=== PATIENT | male | born 1995 | race African-American/Black ===

== ENCOUNTER 2018-02-09 20:03 | Emergency (ER) | payer SELFPAY ==
--- NOTE | 2018-02-09 21:13 | EDPHY ---
H & P Stated Complaint: SWOLLEN R ANKLE/FROM ANKLE MONITOR WANTS IT LOOSENED Time Seen by Provider: 02/09/18 21:13 - Personal History Current Tetanus Diphtheria and Acellular Pertussis (TDAP): Yes - Medical/Surgical History Hx Asthma: No Hx Chronic Respiratory Disease: No Hx Diabetes: No Hx Cardiac Disease: No Hx Renal Disease: No Hx Cirrhosis: No Hx Alcoholism: No Hx HIV/AIDS: No Hx Splenectomy or Spleen Trauma: No Other PMH: DENIES - Social History Smoking Status: Light smoker Constitutional: Initial Vital Signs Temperature (C) 37.7 C 02/09/18 20:22 Heart Rate 95 02/09/18 20:22 Respiratory Rate 16 02/09/18 20:22 Blood Pressure 136/67 H 02/09/18 20:22 O2 Sat (%) 98 02/09/18 20:22 O2 Delivery Mode Room Air Allergies/Adverse Reactions: No Known Allergies Allergy (Unverified 02/09/18 20:24) Home Medications: Medication Instructions Recorded Sulfamethox/Tmp 800/160 mg 1 tab PO BID #14 tab 02/09/18 [Bactrim Ds] Medical Decision Making ED Course/Re-evaluation: CHIEF COMPLAINT: Right ankle pain and swelling HISTORY OF PRESENT ILLNESS: The patient is a 22 y/o male complaining of right ankle pain and swelling at the site of his ankle monitor. He is unable to remove the ankle monitor and is concerned about an infection. 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 No fever, headache, chest pain, shortness of breath, abdominal pain , urinary or bowel complaints, numbness, paresthesias, fevers. REVIEW OF SYSTEMS: A comprehensive 10 system review of systems is otherwise negative aside from elements mentioned in the history of present illness and medical decision making. PHYSICAL EXAM: HR, BP, O2 Sat, RR. Temp noted General Appearance: Alert, well hydrated, appropriate, and non-toxic appearing. Head: Atraumatic without scalp tenderness or obvious injury Eyes: Pupils equal, round, reactive to light and accommodation, EOMI, no trauma , no injection. Ears: Clear bilaterally, no perforation, normal landmarks Nose: Atraumatic, no rhinorrhea, clear. Throat: There is no erythema or exudates, no lesions, normal tonsils, mucus membranes moist. Musculoskeletal: Normal active ROM of all extremities, atraumatic. Neurological: Alert, appropriate, and interactive. The patient has normal DTRs and non-focal cranial nerves, motor, sensory, and cerebellar exam. Skin: Erythema under the right ankle bracelet. Several small subcutaneous areas of swelling that are not ready to drain. No rashes, good turgor, no nodules on palpation. Past medical history: Denies Past surgical history: Denies Family history: Denies Social history: Lives in [place], single, employed DIAGNOSTICS/PROCEDURES/CRITICAL CARE TIME: Not indicated. DIFFERENTIAL DIAGNOSIS: The differential diagnosis for the patient's skin redness included but was not limited to cellulitis, viral syndrome, meningitis, and sepsis. MEDICAL DECISION MAKING: The patient is a 22 y/o male complaining of right ankle pain and swelling at the site of his ankle monitor. On exam there is erythema under the ankle bracelet. There are also several small subcutaneous areas of swelling that are not ready to drain. He is trying to contact his truant officer to remove the ankle bracelet. 800mg PO Bactrim and 600mg PO Motrin given for patient's right ankle cellulitis and pain. 2215: Patient has been unable to contact his truant officer to remove the ankle bracelet. We will contact [employer] to remove the ankle bracelet. We contacted the [place] please. They told us to cut the ankle bracelet off in the patient can get a new bracelet tomorrow. It is medically indicated due to his underlying cellulitis. - Data Points Medications Given: Discontinued Medications Ibuprofen (Motrin) 600 mg PO EDNOW ONE Stop: 02/09/18 22:02 Last Admin: 02/09/18 22:13 Dose: 600 mg Trimethoprim/Sulfamethoxazole (Bactrim Ds) 1 ea PO EDNOW ONE PRN Reason: Protocol Stop: 02/09/18 21:17 Last Admin: 02/09/18 22:13 Dose: 1 ea Departure - Departure Disposition: Home, Routine, Self-Care Clinical Impression: Cellulitis Qualifiers: Site of cellulitis: extremity Site of cellulitis of extremity: lower extremity Laterality: right Qualified Code(s): L03.115 - Cellulitis of right lower limb Condition: Good Instructions: Cellulitis (ED) Additional Instructions: 1. Take Bactrim as prescribed. 2. Follow-up with your primary doctor within 72 hours. 3. Return to the Emergency Department for fever, chest pain, shortness of breath , increasing pain or other worsening of condition. 4. It was required to cut the ankle bracelet off due to underlying cellulitis. We had no other solution. We started the patient on antibiotics. Referrals: [facility],. [Clinic] - As per Instructions Prescriptions: Sulfamethox/Tmp 800/160 mg [Bactrim Ds] 1 tab PO BID #14 tab Report Scribed for: Miguel Monsalve Report Scribed by: Rae Byrnes Date of Report: 02/09/18 Time of Report: 21:14
[2018-02-09] MEDS ORDERED: SULFAMETHOX/TMP 800/160 MG 1 TAB PO ONE (21:16)
[2018-02-09] MEDS ORDERED: IBUPROFEN 600 MG TAB PO ONE ×2 (22:00→22:01)
[2018-02-09] MEDS ORDERED: CEPHALEXIN 500 MG CAP PO ONE (22:27)
[2018-02-09 22:40] VITALS: BP 144/80
== END 2018-02-09 22:44 | disposition home or self-care (01) ==
LOC: EEVIPCON 20:03
DX: L03.115 Cellulitis of right lower limb (principal); F17.200 Nicotine dependence, unspecified, uncomplicated

== ENCOUNTER 2018-03-09 17:45 | Emergency (ER) | payer SELFPAY ==
[2018-03-09 18:00] VITALS: BP 125/77
--- NOTE | 2018-03-09 18:31 | EDPHY ---
H & P Time Seen by Provider: 03/09/18 18:16 HPI/ROS: HPI Recheck of right leg wound. Sore throat. 22-year-old male on foot. This patient was seen in the emergency department by Dr. Miguel Monsalve on February 09 with complaint of possible infection to his right ankle secondary to his ankle monitoring bracelet. He was placed on Bactrim DS for 7 days. He has taken these antibiotics. He states that the area of his right ankle has been itching him but otherwise has no complaints. He also complains of an ongoing sore throat for 2-3 months since he ate some pizza down in [place] which he thought may have had some glass shards in it. ROS: Constitutional: No fever, no chills. No weakness. Eyes: No discharge. No changes in vision. ENT: As above. No nasal congestion or rhinorrhea. Respiratory: No cough. No shortness of breath. Musculoskeletal: No back pain. No neck pain. No myalgias or arthralgias. Skin: No rashes. As above. Neurological: No headache. No focal weakness or altered sensation. Past medical history: Denies any other past medical history. Social history: Nonsmoker. No alcohol. Currently here by himself. Physical Exam: General Appearance: Alert, no distress. This patient is responding to questions appropriately and in full sentences. This patient appears well- hydrated and well-nourished. Eyes: Pupils equal and round no pallor or injection. No lid edema, erythema or injection. ENT, Mouth: Mucous membranes are moist. The pharyngeal tissues are unremarkable. No edema or swelling. No asymmetry suggestive of abscess. No erythema or exudates. No cervical, submandibular, submental lymphadenopathy. No stridor on auscultation of his neck. No voice changes. Respiratory: There are no retractions, lungs are clear to auscultation with good air movement bilaterally. Neurological: Motor sensory function is grossly intact. Cranial nerves are normal. Gait is normal. Skin: Warm and dry, no rashes. Examination of his right ankle significant for 3 what appear to be 3 well healing abscesses which are well scabbed over about 3 cm apart distal anterior ankle. There is no associated fluctuance on palpation of these. There is no associated warmth, erythema or edema. Musculoskeletal: Neck is supple and nontender. Extremities are symmetrical. All joints range without pain or impingement. Psychiatric: No agitation. No depression. Database: EKG: Imaging: Procedures: Emergency department course: Triage vital signs reviewed. He is afebrile. Vital signs otherwise normal. Concerning his right leg these wounds appear to be well healing and without evidence of infection. I do not feel that further antibiotics or treatment is necessary. Regarding the sore throat. His exam is unremarkable. I do not feel he requires any further emergency department management for this at this time. We will have him follow up with ENT for re-evaluation. I also discussed follow[facility]. He is in agreement with this plan. Return to emergency department precautions were discussed with him. All of his questions were answered. He was discharged from the emergency department in good condition. Differential Diagnosis: The differential diagnosis on this patient includes but is not limited to healing right leg wounds, sore throat. Retropharyngeal abscess, upper airway foreign body, peritonsillar abscess, tracheitis, epiglottitis, right leg cellulitis, necrotizing fasciitis, osteomyelitis unlikely. This represents a partial list of diagnoses considered. These considerations are based on history , physical exam, past history, reassessment and diagnostic testing. Smoking Status: Light smoker Constitutional: Initial Vital Signs Heart Rate 78 03/09/18 17:58 Respiratory Rate 18 03/09/18 17:58 Blood Pressure 125/77 H 03/09/18 17:58 O2 Sat (%) 97 03/09/18 17:58 O2 Delivery Mode Room Air O2 (L/minute) 36.7 Allergies/Adverse Reactions: No Known Allergies Allergy (Verified 03/09/18 17:57) Home Medications: Medication Instructions Recorded NK [No Known Home Meds] 03/09/18 Departure - Departure Disposition: Home, Routine, Self-Care Clinical Impression: Pharyngitis, Wound check, abscess Condition: Good Instructions: Pharyngitis (ED), Abscess Follow-up (ED) Additional Instructions: Read and follow provided instructions. Follow-up with your primary care physician for re-evaluation. I have provided you with a referral to [facility]. You can go to their walk-in clinic for recheck of your right leg wounds on Saturday or Saturday of this week. He will also need to establish primary care physician relationship with them. I have also provided you with a referral to our ENT Clinic. Call them for appointment this coming week to discuss your ongoing sore throat. Ibuprofen dosin mg every 6 hours with meals for the next 3 days only. Take only as needed for pain. Return to the emergency department for worsening symptoms, swelling or discoloration of your right leg, fever, worsening throat pain, difficulty breathing or other serious concerns. Referrals: [facility],. [Clinic] - As per Instructions Gillian Jackson PAC [Physician Dye Maker] - As per Instructions Andreas Kim MD [Medical Doctor] - As per Instructions
== END 2018-03-09 18:55 | disposition home or self-care (01) ==
DX: J02.9 Acute pharyngitis, unspecified (principal); L02.415 Cutaneous abscess of right lower limb; F17.200 Nicotine dependence, unspecified, uncomplicated

== ENCOUNTER 2018-04-23 01:01 | Emergency (ER) | payer SELFPAY ==
[2018-04-23 02:32] LABS: PLATELET COUNT 234 10^3/uL (150-400)
--- NOTE | 2018-04-23 05:59 | EDPHY ---
H & P Stated Complaint: "experiencing a lot of physical symptoms", ST, congestion - Personal History Current Tetanus/Diphtheria Vaccine: No Current Tetanus Diphtheria and Acellular Pertussis (TDAP): No - Medical/Surgical History Hx Asthma: No Hx Chronic Respiratory Disease: No Hx Diabetes: No Hx Cardiac Disease: No Hx Renal Disease: No Hx Cirrhosis: No Hx Alcoholism: No Hx HIV/AIDS: No Hx Splenectomy or Spleen Trauma: No Other PMH: DENIES - Social History Smoking Status: Light smoker Time Seen by Provider: 04/23/18 01:22 HPI/ROS: Chief Complaint: Medical clearance,"having a hard time" HPI: 22-year-old male sent down from [facility] for medical clearance. Patient states he has been had emotionally having a very hard time lately. He is depressed but not feeling suicidal. Feels like he is just in a difficult spot. No hallucinations. He has been complaining of some general malaise but no fevers. No chest pain or shortness of breath. No cough. He has had some mild sore throat. No nausea or vomiting. He was seen at [facility] in a few who would benefit from a crisis stabilization unit but sent here for medical clearance. He is currently without physical complaints other than mild sore throat. ROS: 10 systems were reviewed and were negative except those elements noted in the HPI. PMH: Denies Social History: No smoking, no alcohol, occasional marijuana Family History: non-contributory Physical Exam: Gen: Awake, Alert, No Distress HEENT: Nose: no rhinorrhea Eyes: PERRLA, EOMI Mouth: Moist mucosa Neck: Supple, no JVD Chest: nontender, lungs clear to auscultation Heart: S1, S2 normal, no murmur Abd: Soft, non-tender, no guarding Back: no CVA tenderness, no midline tenderness Ext: no edema, non-tender Skin: no rash Neuro: CN II-XII intact, Sensation grossly intact, Strength 5/5 in bilateral upper and lower extremities (Wallace Rodriguez) Constitutional: Initial Vital Signs Temperature (C) 36.4 C 04/23/18 01:04 Heart Rate 71 04/23/18 01:04 Respiratory Rate 16 04/23/18 01:04 Blood Pressure 155/74 H 04/23/18 01:04 O2 Sat (%) 99 04/23/18 01:04 O2 Delivery Mode Room Air Allergies/Adverse Reactions: No Known Allergies Allergy (Verified 03/09/18 17:57) Home Medications: Medication Instructions Recorded NK [No Known Home Meds] 03/09/18 Medical Decision Making ED Course/Re-evaluation: 22-year-old male presenting for medical clearance. He has a benign exam at this time. Laboratory evaluations are unremarkable. I do not see any evidence of an acute infectious process at this time. He is medically cleared for placement. (Wallace Rodriguez) 7:40 a.m. the patient has a an evaluated here. He is medically cleared. Joint spoke with [facility] who requested that he return to the walk-in clinic. We will release him at this time. (Roberto Simon) - Data Points Laboratory Results: Laboratory Results 04/23/18 02:20 04/23/18 02:20 04/23/18 04/23/18 04/23/18 02:20 02:20 02:09 WBC 5.82 10^3/uL 10^3/uL (3.80-9.50) RBC 5.49 10^6/uL 10^6/uL (4.40-6.38) Hgb 16.8 g/dL g/dL (13.7-17.5) Hct 48.2 % % (40.0-51.0) MCV 87.8 fL fL (81.5-99.8) MCH 30.6 pg pg (27.9-34.1) MCHC 34.9 g/dL g/dL (32.4-36.7) RDW 12.0 % % (11.5-15.2) Plt Count 234 10^3/uL 10^3/uL (150-400) MPV 11.1 fL fL (8.7-11.7) Neut % (Auto) 51.3 % % (39.3-74.2) Lymph % (Auto) 37.8 % % (15.0-45.0) [place] % (Auto) 8.8 % % (4.5-13.0) Eos % (Auto) 1.2 % % (0.6-7.6) Baso % (Auto) 0.7 % % (0.3-1.7) Nucleat RBC Rel Count 0.0 % % (0.0-0.2) Absolute Neuts (auto) 2.99 10^3/uL 10^3/uL (1.70-6.50) Absolute Lymphs (auto) 2.20 10^3/uL 10^3/uL (1.00-3.00) Absolute Monos (auto) 0.51 10^3/uL 10^3/uL (0.30-0.80) Absolute Eos (auto) 0.07 10^3/uL 10^3/uL (0.03-0.40) Absolute Basos (auto) 0.04 10^3/uL 10^3/uL (0.02-0.10) Absolute Nucleated RBC 0.00 10^3/uL 10^3/uL (0-0.01) Immature Gran % 0.2 % % (0.0-1.1) Immature Gran # 0.01 10^3/uL 10^3/uL (0.00-0.10) Sodium 140 mEq/L mEq/L (135-145) Potassium 4.1 mEq/L mEq/L (3.3-5.0) Chloride 106 mEq/L mEq/L (97-110) Carbon Dioxide 26 mEq/l mEq/l (22-31) Anion Gap 8 mEq/L mEq/L (6-14) BUN 10 mg/dL mg/dL (7-23) Creatinine 0.6 mg/dL L mg/dL (0.7-1.3) Estimated GFR > 60 Glucose 80 mg/dL mg/dL (70-100) Calcium 9.5 mg/dL mg/dL (8.5-10.4) Urine Opiates Screen NEGATIVE (NEGATIVE) Urine Barbiturates NEGATIVE (NEGATIVE) Ur Phencyclidine Scrn NEGATIVE (NEGATIVE) Ur Amphetamine Screen NEGATIVE (NEGATIVE) U Benzodiazepines Scrn NEGATIVE (NEGATIVE) Urine Cocaine Screen NEGATIVE (NEGATIVE) U Marijuana (THC) Screen NON-NEGATIVE H (NEGATIVE) Ethyl Alcohol < 10 mg/dL mg/dL (0-10) Departure - Departure Disposition: Home, Routine, Self-Care Clinical Impression: Depression Qualifiers: Depression Type: unspecified Qualified Code(s): F32.9 - Major depressive disorder, single episode, unspecified Condition: Fair Instructions: Depression (ED) Additional Instructions: Return to [facility] walk-in clinic now Referrals: [facility] [Outside] - As per Instructions
[2018-04-23 07:53] VITALS: BP 132/70
== END 2018-04-23 08:09 | disposition home or self-care (01) ==
LOC: EDUNIT#
DX: F32.9 Major depressive disorder, single episode, unspecified (principal); J02.9 Acute pharyngitis, unspecified
CPT/HCPCS: 80305; G0480

== ENCOUNTER 2018-06-04 16:16 | Emergency (ER) | payer OTHER, MEDICAID ==
--- NOTE | 2018-06-04 16:11 | EDPHY ---
H & P Time Seen by Provider: 06/04/18 16:26 Constitutional: Initial Vital Signs Temperature (C) 36.8 C 06/04/18 16:22 Heart Rate 85 06/04/18 16:22 Respiratory Rate 18 06/04/18 16:22 Blood Pressure 135/63 H 06/04/18 16:22 O2 Sat (%) 97 06/04/18 16:22 O2 Delivery Mode Room Air Allergies/Adverse Reactions: No Known Allergies Allergy (Verified 03/09/18 17:57) Home Medications: Medication Instructions Recorded NK [No Known Home Meds] 06/04/18 Medical Decision Making ED Course/Re-evaluation: CHIEF COMPLAINT: Psychiatric evaluation HISTORY OF PRESENT ILLNESS: This patient is a 22 year old male arriving on M1 hold by mental health providers. He has already undergone psychiatric evaluation and presents mainly for medical clearance prior to placement. Per M1 paperwork, the patient presented with tangential and disorganized speech with symptoms worsening over the past month. He is now unable to perform his ADLs and presents on a hold for being gravely disabled. He is not suicidal or homicidal. He is not systemically ill. No recent trauma. REVIEW OF SYSTEMS: A comprehensive 10 system review of systems is otherwise negative aside from elements mentioned in the history of present illness and medical decision making. PHYSICAL EXAM: General Appearance: Alert, well hydrated, appropriate, and non-toxic appearing. Head: Atraumatic without scalp tenderness or obvious injury Eyes: Pupils equal, round, reactive to light and accommodation, EOMI, no trauma , no injection. Ears: Clear bilaterally, no perforation, normal landmarks Nose: Atraumatic, no rhinorrhea, clear. Throat: There is no erythema or exudates, no lesions, normal tonsils, mucus membranes moist. Neck: Supple, 2+ carotid upstroke, nontender, no lymphadenopathy. Respiratory: No retractions, no distress, no wheezes, and no accessory muscle use. Lungs are clear to auscultation bilaterally. Cardiovascular: Regular rate and rhythm, no murmurs, rubs, or gallops. Bilateral carotid, radial, dorsalis pedis, and posterior tibial pulses intact. Good capillary refill all extremities. Gastrointestinal: Abdomen is soft, nontender, non-distended, no masses, no rebound, no guarding, no peritoneal signs. Musculoskeletal: Normal active ROM of all extremities, atraumatic. Neurological: Alert, appropriate, and interactive. The patient has normal DTRs and non-focal cranial nerves, motor, sensory, and cerebellar exam. Skin: No rashes, good turgor, no nodules on palpation. Past medical history: Denies Past surgical history: Noncontributory Family history: Noncontributory Social history: Lives in [place]. DIFFERENTIAL DIAGNOSIS: The differential diagnosis for the patient's depression included but was not limited to functional and major depression, situational depression, medication side effect, drugs, and alcohol abuse. MEDICAL DECISION MAKING: Patient is in no acute distress and is hemodynamically stable. Patient has known history of psychiatric disorders and is here for medical clearance prior to placement. 20:09 Dr. Quick, psychiatrist, has refused admission for this patient. [facility] will continue looking for appropriate placement for the patient. 22:30 Care of this patient signed out to Dr. Grier at shift change, pending placement. (Miguel Monsalve) 2:32 a.m.- Patient stable throughout my shift. He is currently accepted at [facility] by Dr. Varghese. I have completed the EMTALA form. (Vivian Grier) - Data Points Laboratory Results: Laboratory Results 06/04/18 16:24 06/04/18 16:24 06/04/18 06/04/18 06/04/18 18:00 16:24 16:24 WBC 6.01 10^3/uL 10^3/uL (3.80-9.50) RBC 5.18 10^6/uL 10^6/uL (4.40-6.38) Hgb 15.6 g/dL g/dL (13.7-17.5) Hct 44.8 % % (40.0-51.0) MCV 86.5 fL fL (81.5-99.8) MCH 30.1 pg pg (27.9-34.1) MCHC 34.8 g/dL g/dL (32.4-36.7) RDW 11.8 % % (11.5-15.2) Plt Count 206 10^3/uL 10^3/uL (150-400) MPV 11.0 fL fL (8.7-11.7) Neut % (Auto) 71.2 % % (39.3-74.2) Lymph % (Auto) 22.6 % % (15.0-45.0) [place] % (Auto) 4.2 % L % (4.5-13.0) Eos % (Auto) 1.3 % % (0.6-7.6) Baso % (Auto) 0.5 % % (0.3-1.7) Nucleat RBC Rel Count 0.0 % % (0.0-0.2) Absolute Neuts (auto) 4.28 10^3/uL 10^3/uL (1.70-6.50) Absolute Lymphs (auto) 1.36 10^3/uL 10^3/uL (1.00-3.00) Absolute Monos (auto) 0.25 10^3/uL L 10^3/uL (0.30-0.80) Absolute Eos (auto) 0.08 10^3/uL 10^3/uL (0.03-0.40) Absolute Basos (auto) 0.03 10^3/uL 10^3/uL (0.02-0.10) Absolute Nucleated RBC 0.00 10^3/uL 10^3/uL (0-0.01) Immature Gran % 0.2 % % (0.0-1.1) Immature Gran # 0.01 10^3/uL 10^3/uL (0.00-0.10) RBC/WBC/PLT Morphology TNP Platelet Estimate TNP Sodium 143 mEq/L mEq/L (135-145) Potassium 4.0 mEq/L mEq/L (3.5-5.2) Chloride 107 mEq/L mEq/L (97-110) Carbon Dioxide 28 mEq/l mEq/l (22-31) Anion Gap 8 mEq/L mEq/L (6-14) BUN 12 mg/dL mg/dL (7-23) Creatinine 0.8 mg/dL mg/dL (0.7-1.3) Estimated GFR > 60 Glucose 87 mg/dL mg/dL (70-100) Calcium 9.0 mg/dL mg/dL (8.5-10.4) Salicylates < 1.0 mg/dL L mg/dL (2.0-20.0) Urine Opiates Screen NEGATIVE (NEGATIVE) Acetaminophen < 10 mcg/mL L mcg/mL (10-30) Urine Barbiturates NEGATIVE (NEGATIVE) Ur Phencyclidine Scrn NEGATIVE (NEGATIVE) Ur Amphetamine Screen NEGATIVE (NEGATIVE) U Benzodiazepines Scrn NEGATIVE (NEGATIVE) Urine Cocaine Screen NEGATIVE (NEGATIVE) U Marijuana (THC) Screen NON-NEGATIVE H (NEGATIVE) Ethyl Alcohol < 10 mg/dL mg/dL (0-10) Departure - Departure Disposition: Other Psych, Not [place] Clinical Impression: Psychosis Qualifiers: Psychosis type: unspecified psychosis type Qualified Code(s): F29 - Unspecified psychosis not due to a substance or known physiological condition Condition: Fair Referrals: Patient,NotPresent [Unknown] - As per Instructions Report Scribed for: Miguel Monsalve Report Scribed by: Nancy Eason Date of Report: 06/04/18 Time of Report: 16:27
[2018-06-04 16:38] LABS: PLATELET COUNT 206 10^3/uL (150-400)
--- NOTE | 2018-06-04 20:40 | ASMTLCPROG ---
Notes Note: Notes: TLC consulted with on-call Psychiatrist, Dr Jarek Quick. Pt was declined for admission on 3N/[facility]. [facility] consulted with [facility] who completed MH evaluation. [facility] will look for alternative hospital options vs [facility] placement. Date Signed: 06/04/2018 08:39 PM Electronically Signed By:Denise Mercado
[2018-06-05 02:24] VITALS: BP 100/70
== END 2018-06-05 03:44 ==
LOC: EDUNIT#
DX: F29 Unspecified psychosis not due to a substance or known physiological condition (principal)
CPT/HCPCS: 80305; G0480

== ENCOUNTER 2018-08-14 23:55 | Emergency (ER) | payer MEDICAID ==
[2018-08-15 00:02] VITALS: BP 149/86
--- NOTE | 2018-08-15 00:06 | EDPHY ---
H & P Stated Complaint: SOB, med clear for [facility] Time Seen by Provider: 08/15/18 00:00 HPI/ROS: Chief Complaint: Short of breath, med clear HPI: 22-year-old male with a history of anxiety and depression is being brought in by EMS for medical clearance for [facility]. Patient called EMS because he was complaining of feeling short of breath. Patient has a history of anxiety and depression. He has been off his medications and is feeling anxious. Symptoms are similar to prior anxiety attacks. No fevers or chills. No cough. Per EMS lungs are clear. Oxygen satting 100% on room air. Not tachypneic. Patient is under arrest as warrants and is being accompanied by police. Patient denies being suicidal or homicidal. He is unwilling to answer questions but is forthcoming when the police are out of the room. Denies any drug use but does smell of marijuana. ROS: 10 systems were reviewed and were negative except those elements noted in the HPI. PMH: Anxiety and depression Social History: Positive smoking, no alcohol, positive marijuana Family History: non-contributory Physical Exam: Gen: Awake, Alert, No Distress HEENT: Nose: no rhinorrhea Eyes: PERRLA, EOMI Mouth: Moist mucosa Neck: Supple, no JVD Chest: nontender, lungs clear to auscultation Heart: S1, S2 normal, no murmur Abd: Soft, non-tender, no guarding Back: no CVA tenderness, no midline tenderness Ext: no edema, non-tender Skin: no rash Neuro: CN II-XII intact, Sensation grossly intact, Strength 5/5 in bilateral upper and lower extremities - Personal History Current Tetanus/Diphtheria Vaccine: Yes Current Tetanus Diphtheria and Acellular Pertussis (TDAP): Yes - Medical/Surgical History Hx Asthma: No Hx Chronic Respiratory Disease: No Hx Diabetes: No Hx Cardiac Disease: No Hx Renal Disease: No Hx Cirrhosis: No Hx Alcoholism: No Hx HIV/AIDS: No Hx Splenectomy or Spleen Trauma: No Other PMH: Depression, marijuana use - Social History Smoking Status: Light smoker Constitutional: Initial Vital Signs Temperature (C) 36.5 C 08/14/18 23:59 Heart Rate 77 08/14/18 23:59 Respiratory Rate 16 08/14/18 23:59 Blood Pressure 149/86 H 08/14/18 23:59 O2 Sat (%) 99 03/21/19 23:59 O2 Delivery Mode Room Air Allergies/Adverse Reactions: No Known Allergies Allergy (Verified 08/15/18 00:02) Home Medications: Medication Instructions Recorded NK [No Known Home Meds] 06/04/18 Medical Decision Making ED Course/Re-evaluation: 22-year-old male being brought in for complaints of shortness of breath. His lungs are clear. He is not tachypneic. He is satting 100% on room air. He is not tachycardic. He has no risk factors for thromboembolic disease. He is now absolutely no distress. No evidence of acute respiratory abnormality. He is awake alert and answering questions appropriately. He is not suicidal homicidal. No evidence of acute respiratory issue. Patient is medically clear for [facility]. Departure - Departure Disposition: Law Enforcement/Court/Half-Way Clinical Impression: Anxiety Condition: Good Instructions: Anxiety (ED) Additional Instructions: Make sure you take your medications as prescribed. MEDICALLY CLEAR FOR INTERMEDIATE Referrals: [facility],. [Clinic] - As per Instructions
== END 2018-08-15 00:11 ==
LOC: EDUNIT#
DX: R06.02 Shortness of breath (principal); F41.9 Anxiety disorder, unspecified

== ENCOUNTER 2018-11-05 13:55 | Emergency (ER) | payer MEDICAID | END 2018-11-05 16:02 | disposition home or self-care (01) ==

== ENCOUNTER 2018-11-19 21:15 | Emergency (ER) | payer MEDICAID | END 2018-11-20 14:28 | disposition home or self-care (01) ==